=== PATIENT | male | born 1965 | race Hispanic/Latino ===

== ENCOUNTER 2019-05-13 11:15 | Emergency (ER) | payer BC ==
[~2019-05-13] VITALS: Ht 177.8 cm; Wt 132.2 kg
--- OUTSIDE RECORDS SUMMARY | 2019-05-13 11:18 | XMS REPORT ---
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
--- OUTSIDE RECORDS SUMMARY | 2019-05-13 11:18 | XMS REPORT ---
Author Author Deysi Buchanan [facility] eClinicalWorks Address Unknown Phone Unavailable Care Team Providers Care Environmental Associate Name Role Phone Deysi Buchanan CP Unavailable Allergies No Known Allergies Problems Problem Type Condition Code Onset Dates Condition Status Problem Nasal Airway Obstruction R0 Active Problem Sinusitis - Chronic J32.8 Active Problem Deviated nasal septum J34.2 Active Problem Allergic rhinitis due to pollen J30.1 Active Problem Hypersensitivity pneumonitis due to other organic dusts J67.8 Active Problem Sinusitis - Chronic J32.9 Active Problem Cough R05 Active Problem Obstructive sleep apnea G47.33 Active Problem Allergic rhinitis, seasonal J30.2 Active Problem Asthma, other J45.998 Active Assessment Other allergic rhinitis J30.89 Active Assessment Allergic rhinitis due to animal (cat) (dog) hair and dander J30.81 Active Assessment Allergic rhinitis due to pollen J30.1 Active Problem 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
--- OUTSIDE RECORDS SUMMARY | 2019-05-13 11:18 | XMS REPORT ---
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
--- OUTSIDE RECORDS SUMMARY | 2019-05-13 11:18 | XMS REPORT ---
Author Author Deysi Buchanan [facility] e[employer] Address Unknown Phone Unavailable Care Team Providers Care Print Machine Operator Name Role Phone Deysi Buchanan CP Unavailable [...]
--- OUTSIDE RECORDS SUMMARY | 2019-05-13 11:18 | XMS REPORT ---
Author Author Deysi Buchanan [facility] eClinicalWorks Address Unknown Phone Unavailable Care Team Providers Care Manager Medicare Name Role Phone Deysi Buchanan CP Unavailable [...]
--- OUTSIDE RECORDS SUMMARY | 2019-05-13 11:18 | XMS REPORT ---
Author Author Deysi Buchanan [facility] eClinicalWorks Address Unknown Phone Unavailable Care Team Providers Care Driver License Agent Name Role Phone Deysi Buchanan CP Unavailable [...]
--- OUTSIDE RECORDS SUMMARY | 2019-05-13 11:18 | XMS REPORT ---
Author Author Deysi Buchanan [facility] eClinicalWorks Address Unknown Phone Unavailable Care Team Providers Care Mathematics Teacher Name Role Phone Deysi Buchanan CP Unavailable [...]
--- OUTSIDE RECORDS SUMMARY | 2019-05-13 11:18 | XMS REPORT ---
Author Author Deysi Buchanan [facility] e[employer] Address Unknown Phone Unavailable Care Team Providers Care Telephone Switchboard Operator Name Role Phone Deysi Buchanan CP [...]
--- OUTSIDE RECORDS SUMMARY | 2019-05-13 11:18 | XMS REPORT ---
Author Author Deysi Buchanan [facility] eClinicalWorks Address Unknown Phone Unavailable Care Team Providers Care Clerical Administrator Name Role Phone Deysi Buchanan CP Unavailable [...]
--- OUTSIDE RECORDS SUMMARY | 2019-05-13 11:18 | XMS REPORT ---
Author Author Nithya Edmondson Organization [employer] Address Unknown Phone Unavailable Care Team Providers Care Social Media Strategist Name Role Phone Nithya Edmondson CP Unavailable Allergies No Known Allergies Problems [...]
--- OUTSIDE RECORDS SUMMARY | 2019-05-13 11:18 | XMS REPORT ---
Author Author Deysi Buchanan [facility] eClinicalWorks Address Unknown Phone Unavailable Care Team Providers Care Digital Content Manager Name Role Phone Deysi Buchanan CP Unavailable [...]
--- OUTSIDE RECORDS SUMMARY | 2019-05-13 11:18 | XMS REPORT ---
Author Author Deysi Buchanan [facility] eClinicalWorks Address Unknown Phone Unavailable Care Team Providers Care Marshmallow Runner Name Role Phone Deysi Buchanan CP Unavailable [...]
--- OUTSIDE RECORDS SUMMARY | 2019-05-13 11:18 | XMS REPORT ---
Author Author Deysi Buchanan [facility] eClinicalWorks Address Unknown Phone Unavailable Care Team Providers Care Golf Course Starter Name Role Phone Deysi Buchanan CP Unavailable [...]
--- OUTSIDE RECORDS SUMMARY | 2019-05-13 11:18 | XMS REPORT ---
Author Author Deysi Buchanan [facility] e[employer]Works Address Unknown Phone Unavailable Care Team Providers Care Warehouse Guard Name Role Phone Deysi Buchanan CP Unavailable [...]
--- OUTSIDE RECORDS SUMMARY | 2019-05-13 11:18 | XMS REPORT ---
Author Author Deysi Buchanan [facility] eClinicalWorks Address Unknown Phone Unavailable Care Team Providers Care Crossing Watchman Name Role Phone Deysi Buchanan CP Unavailable [...]
--- OUTSIDE RECORDS SUMMARY | 2019-05-13 11:18 | XMS REPORT ---
Author Author Deysi Buchanan [facility] eClinical[employer] Address Unknown Phone Unavailable Care Team Providers Care Tailer Off Name Role Phone Deysi Buchanan CP Unavailable [...]
--- OUTSIDE RECORDS SUMMARY | 2019-05-13 11:18 | XMS REPORT ---
Author Author Deysi Buchanan Organization [employer] Address Unknown Phone Unavailable Care Team Providers Care Imaging Technician Name Role Phone Deysi Buchanan CP Unavailable [...]
--- OUTSIDE RECORDS SUMMARY | 2019-05-13 11:18 | XMS REPORT ---
Author Author Deysi Buchanan [facility] eClinicalWorks Address Unknown Phone Unavailable Care Team Providers Care Bracelet And Brooch Maker Name Role Phone Deysi Buchanan CP Unavailable [...]
--- OUTSIDE RECORDS SUMMARY | 2019-05-13 11:18 | XMS REPORT ---
Author Author Deysi Buchanan [facility] e[employer] Address Unknown Phone Unavailable Care Team Providers Care Flight Technician Name Role Phone Deysi Buchanan CP [...]
--- OUTSIDE RECORDS SUMMARY | 2019-05-13 11:18 | XMS REPORT ---
Author Author Deysi Buchanan [facility] e[employer]Works Address Unknown Phone Unavailable Care Team Providers Care Oil Furnace Installer Name Role Phone Deysi Buchanan CP Unavailable [...]
--- OUTSIDE RECORDS SUMMARY | 2019-05-13 11:18 | XMS REPORT ---
Author Author Deysi Buchanan [facility] e[employer] Address Unknown Phone Unavailable Care Team Providers Care Miner Operator Name Role Phone Deysi Buchanan CP [...]
--- OUTSIDE RECORDS SUMMARY | 2019-05-13 11:18 | XMS REPORT ---
Author Author Deysi Buchanan [facility] eClinicalWorks Address Unknown Phone Unavailable Care Team Providers Care Director Call Name Role Phone Deysi Buchanan CP Unavailable [...]
--- OUTSIDE RECORDS SUMMARY | 2019-05-13 11:18 | XMS REPORT ---
Author Author Deysi Buchanan [facility] e[employer] Address Unknown Phone Unavailable Care Team Providers Care Detective Captain Name Role Phone Deysi Buchanan CP Unavailable [...]
--- OUTSIDE RECORDS SUMMARY | 2019-05-13 11:18 | XMS REPORT ---
Author Author Deysi Buchanan [facility] e[employer] Address Unknown Phone Unavailable Care Team Providers Care Tableman Name Role Phone Deysi Buchanan CP Unavailable [...]
--- OUTSIDE RECORDS SUMMARY | 2019-05-13 11:18 | XMS REPORT ---
Author Author Deysi Buchanan [facility] e[employer] Address Unknown Phone Unavailable Care Team Providers Care Senior Manager Asset Protection Name Role Phone Deysi Buchanan CP Unavailable [...]
--- OUTSIDE RECORDS SUMMARY | 2019-05-13 11:18 | XMS REPORT ---
Author Author Deysi Buchanan [facility] eClinicalWorks Address Unknown Phone Unavailable Care Team Providers Care Director Telecommunications Name Role Phone Deysi Buchanan CP Unavailable [...]
--- OUTSIDE RECORDS SUMMARY | 2019-05-13 11:18 | XMS REPORT ---
Author Author Deysi Buchanan [facility] eClinicalWorks Address Unknown Phone Unavailable Care Team Providers Care Sales Contract Administrator Name Role Phone Deysi Buchanan CP [...]
--- OUTSIDE RECORDS SUMMARY | 2019-05-13 11:18 | XMS REPORT ---
Author Author Deysi Buchanan [facility] eClinicalWorks Address Unknown Phone Unavailable Care Team Providers Care Analytical Chemistry Teacher Name Role Phone Deysi Buchanan CP [...]
--- OUTSIDE RECORDS SUMMARY | 2019-05-13 11:18 | XMS REPORT ---
Author Author Deysi Buchanan [facility] eClinicalWorks Address Unknown Phone Unavailable Care Team Providers Care Crane Operator Cab Name Role Phone Deysi Buchanan CP Unavailable [...]
[2019-05-13] MEDS ORDERED: KETOROLAC TROMETHAMINE 60 MG/2 ML VIAL IM ONE (12:00)
[2019-05-13] MEDS ORDERED: TRULICITY0.75 MG/0. (12:16)
[2019-05-13] MEDS ORDERED: ATORVASTATIN CA40 MG PO (12:16)
[2019-05-13] MEDS ORDERED: PROAIR HFA INH8.5 GM (12:16)
[2019-05-13] MEDS ORDERED: LISINOPRIL10 MG PO (12:16)
[2019-05-13] MEDS ORDERED: METFORMIN HCL850 MG PO (12:16)
[2019-05-13] MEDS ORDERED: IBUPROFEN600 MG PO (13:03)
[2019-05-13] MEDS ORDERED: ROBAXIN-750750 MG PO (13:05)
[2019-05-13 13:18] VITALS: BP 118/71
== END 2019-05-13 13:14 | disposition home or self-care (01) ==
LOC: FSED 11:15
DX: S39.012A Strain of muscle, fascia and tendon of lower back, initial encounter (principal); M54.16 Radiculopathy, lumbar region; I10 Essential (primary) hypertension; E11.9 Type 2 diabetes mellitus without complications; E78.5 Hyperlipidemia, unspecified
CPT/HCPCS: 81003; 82948; 96372; 99283; J1885